=== PATIENT | female | born 1950 | race Caucasian/White ===

== ENCOUNTER 2018-12-15 22:03 | Emergency (ER) | payer MEDICARE, OTHER ==
[~2018-12-15] VITALS: Ht 154.9 cm; Wt 59.9 kg
[~2018-12-15 22:03] MED LIST: HYDR-3980 PO; IBUP-1542 PO; TRAM50TA2 PO
[2018-12-15 22:06] VITALS: Ht 154.9 cm; Wt 59.9 kg
[2018-12-15] MEDS ORDERED: morphine 4 MG/ML VIAL IV STA (22:54)
[2018-12-15] MEDS ORDERED: ONDANSETRON 4 MG INJ IV STA (22:54)
--- NOTE | 2018-12-16 00:45 | ERD ---
ER Documentation Chief Complaint Chief Complaint Left chest wall pain HPI This is 68-year-old female who is here for left chest pain. She is having 1.5 months of sharp pain located at the left lower anterior rib cage in the left pos terior rib cage. 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 She does a lot of bending stooping and repetitive motion.. She says the pain is worse when she lays flat or on the left side or moves. No shortness of breath no radiation of pain no abdominal pain no nausea no diaphoresis no weakness ROS All systems reviewed and are negative except as per history of present illness. Medications Home Meds Active Scripts Tramadol HCl (Tramadol HCl) 50 Mg Tablet, 50 MG PO Q6, #20 TAB Prov:HUSSAIN PITTMAN. DO 12/16/18 Ibuprofen* (Motrin*) 600 Mg Tab, 600 MG PO Q8, #30 TAB Prov:LEHARRISONOSAPOSTOLOS A. DO 12/16/18 Allergies Allergies: Coded Allergies: No Known Allergy (Unverified , 08/09/14) PMhx/Soc History of Surgery: No Anesthesia Reaction: No Hx Neurological Disorder: No Hx Respiratory Disorders: No Hx Cardiac Disorders: Yes (HTN) Hx Psychiatric Problems: No Hx Miscellaneous Medical Probl: No Hx Alcohol Use: No Hx Substance Use: No Hx Tobacco Use: No Smoking Status: Never smoker FmHx Family History: No coronary disease Physical Exam Vitals Vital Signs Date Temp Pulse Resp B/P (MAP) Pulse Ox O2 O2 Flow FiO2 Time Delivery Rate 12/15/18 86 16 175/86 98 Room Air 22:40 (115) 12/15/18 98.5 87 19 180/86 98 22:06 (117) Physical Exam Const: , The left anterior lower ribs are tender to palpate and reproducible pain Head: Atraumatic, normocephalic Eyes: Normal Conjunctiva, PERRLA, EOMI, normal sclera, no nystagmus ENT: Normal External Ears, Nose and Mouth, moist mucus membranes. Neck: Full range of motion. No meningismus, no lymphadenopathy. Resp: Clear to auscultation bilaterally, no wheezing, rhonchi, rales also tenderness is moderate in the posterior mid lower rib cage the pain is reproducible to palpation and movement Cardio: Regular rate and rhythm, no murmurs, S1 S2 present Abd: Soft, non tender x 4, non distended. Normal bowel sounds, no guarding or rebound, no pulsitile abdominal masses or bruits Skin: No petechiae or rashes, no ecchymosis , no maculopapular rash Back: No midline or flank tenderness Ext: No cyanosis, or edema, FROM x 4, normal inspection, neurovascularly intact x 4 Neur: Awake and alert, STR 5/5 x 4, sensation intact x 4, no focal findings, cerebellum intact Psych: Normal Mood and Affect Result Diagram: 12/15/18225112/15/182251 Results 24 hrs Laboratory Tests Test 12/15/18 22:52 White Blood Count 8.5 10^3/ul Red Blood Count 4.41 10^6/ul Hemoglobin 12.7 g/dl Hematocrit 37.3 % Mean Corpuscular Volume 84.6 fl Mean Corpuscular Hemoglobin 28.8 pg Mean Corpuscular Hemoglobin Concent 34.0 g/dl Red Cell Distribution Width 12.4 % Platelet Count 263 10^3/UL Mean Platelet Volume 10.0 fl Immature Granulocytes % 0.100 % Neutrophils % 43.0 % Lymphocytes % 47.1 % Monocytes % 8.3 % Eosinophils % 0.9 % Basophils % 0.6 % Nucleated Red Blood Cells % 0.0 /100WBC Immature Granulocytes # 0.010 10^3/ul Neutrophils # 3.7 10^3/ul Lymphocytes # 4.0 10^3/ul Monocytes # 0.7 10^3/ul Eosinophils # 0.1 10^3/ul Basophils # 0.1 10^3/ul Nucleated Red Blood Cells # 0.0 10^3/ul Sodium Level 131 mmol/L Potassium Level 4.2 mmol/L Chloride Level 92 mmol/L Carbon Dioxide Level 32 mmol/L Anion Gap 7 Blood Urea Nitrogen 7 mg/dl Creatinine 0.91 mg/dl Est Glomerular Filtrat Rate mL/min > 60 mL/min Glucose Level 87 mg/dl Calcium Level 10.1 mg/dl Troponin I < 0.012 ng/ml Current Medications Medications Dose Sig/Justyna Start Time Status Last (Trade) Ordered Route PRN Stop Time Admin Dose Reason Admin Morphine 4 mg ONCE STAT 12/15/18 DC 12/15/18 Sulfate IV 22:54 12/15/18 23:00 (morphine) 22:56 Ondansetron 4 mg ONCE STAT 12/15/18 DC 12/15/18 HCl (Zofran IV 22:54 12/15/18 22:59 Inj) 22:56 Procedures/MDM EKG: Rate/Rhythm: Normal Sinus Rhythm,NL intervals QRS, ST, QT: NORMAL GA, QRS, QT] Impression: NORMAL EKG [place] [id number] Radiology Main Line: [phone] DIAGNOSTIC IMAGING REPORT Patient: BRET WHITE : 1950 Age: 68 Sex: F MR #: [id number] DOS: 12/15/18 2254 Ordering MD: HUSSAIN PITTMAN DO Location: E/R Room/Bed: PROCEDURE: Portable chest x-ray. CLINICAL INDICATION: Chest pain. TECHNIQUE: Portable AP view of the chest. COMPARISON: 08/10/2014. FINDINGS: No pulmonary edema or conolidation is identified. The cardiac silhouette is magnified. No pleural effusion is seen. There is no pneumothorax. IMPRESSION: No evidence of acute cardiopulmonary disease. RPTAT: HTAR .David Lopez MD, MD Date Time Electronically viewed and signed by .David Lopez MD, on 12/15/2018 23:55 .R/ CC: HUSSAIN PITTMAN DO [id number] Patient's pain is grossly musculoskeletal in nature she has reproducible pain to palpation with range of motion of the trunk and she has repetitive motion that keeps aggravating it. Cardiac work-up is negative. Told her to rest and I will prescribe Motrin and Ultram Departure Diagnosis: Primary Impression: Chest wall muscle strain Encounter type: initial encounter Qualified Codes: S29.011A - Strain of muscle and tendon of front wall of thorax, initial encounter Condition: Stable Patient Instructions: Chest Wall Strain HUSSAIN PITTMAN DO Dec 16, 2018 00:45
[2018-12-16 00:52] VITALS: BP 163/75; PULSE 70; RESP 12
== END 2018-12-16 00:52 | disposition home or self-care (01) ==
LOC: E/R 22:03
DX: S29.011A Strain of muscle and tendon of front wall of thorax, initial encounter (principal); I10 Essential (primary) hypertension; X50.3XXA Overexertion from repetitive movements, initial encounter; Y92.89 Other specified places as the place of occurrence of the external cause
CPT/HCPCS: 36415; 71045; 80048; 84484; 85025; 93005; 96374; 96375; 99285; J2270; J2405

== ENCOUNTER 2018-12-24 00:52 | Emergency (ER) | payer MEDICARE ==
[~2018-12-24] VITALS: Ht 162.6 cm; Wt 61.1 kg
[~2018-12-24 00:52] MED LIST changes: +AMI10 PO
[2018-12-24 00:59] VITALS: Ht 162.6 cm; Wt 61.1 kg
[2018-12-24] MEDS ORDERED: morphine 4 MG/ML VIAL IV STA (01:52)
[2018-12-24] MEDS ORDERED: ONDANSETRON 4 MG INJ IV STA (01:52)
[2018-12-24] MEDS ORDERED: hydrALAzine 20 MG INJ IV ONE (02:00)
[2018-12-24] MEDS ORDERED: KETOROLAC 15 MG INJ IV STA (03:32)
--- NOTE | 2018-12-24 03:58 | ERD ---
ER Documentation Chief Complaint Chief Complaint ZHANG,midback pain, left leg pain X1 day,hx shingles HPI Is a 68 female with a headache mid back pain left leg pain for 1 day. Patient has history of seeing shingles recently diagnosed. At this point she has a headache and her blood pressure was elevated at home. She has a history of high blood pressure but is not currently on medications. She denies focal neurologic complaints but denies fevers or chills. Denies nausea vomiting. Denies any visual acuity changes. ROS All systems reviewed and are negative except as per history of present illness. Medications Home Meds Active Scripts Tramadol HCl (Tramadol HCl) 50 Mg Tablet, 50 MG PO Q6, #20 TAB Prov:LEKKOS,APOSTOLOS A. DO 12/16/18 Ibuprofen* (Motrin*) 600 Mg Tab, 600 MG PO Q8, #30 TAB Prov:LEKKOS,APOSTOLOS A. DO 12/16/18 Allergies Allergies: Coded Allergies: No Known Allergy (Unverified , 08/09/14) PMhx/Soc Medical and Surgical Hx: pt denies Surgical Hx History of Surgery: No Anesthesia Reaction: No Hx Neurological Disorder: No Hx Respiratory Disorders: No Hx Cardiac Disorders: Yes (HTN- controled w/o meds x 1 yr) Hx Psychiatric Problems: No Hx Miscellaneous Medical Probl: No Hx Alcohol Use: No Hx Substance Use: No Hx Tobacco Use: No Smoking Status: Never smoker Physical Exam Vitals Vital Signs Date Temp Pulse Resp B/P (MAP) Pulse Ox O2 O2 Flow FiO2 Time Delivery Rate 12/24/18 84 18 120/66 98 Room Air 03:40 (84) 12/24/18 169/78 02:18 (108) 12/24/18 97.2 74 18 202/93 100 00:59 (129) Physical Exam Const: No acute distress Head: Atraumatic Eyes: Normal Conjunctiva ENT: Normal External Ears, Nose and Mouth. Neck: Full range of motion. No meningismus. Resp: Clear to auscultation bilaterally Cardio: Regular rate and rhythm, no murmurs Abd: Soft, non tender, non distended. Normal bowel sounds Skin: No petechiae or rashes Back: No midline or flank tenderness Ext: No cyanosis, or edema Neur: Awake and alert Psych: Normal Mood and Affect Result Diagram: 12/24/1820912/24/18209 Results 24 hrs Laboratory Tests Test 12/24/18 02:10 White Blood Count 7.7 10^3/ul Red Blood Count 4.07 10^6/ul Hemoglobin 11.8 g/dl Hematocrit 34.7 % Mean Corpuscular Volume 85.3 fl Mean Corpuscular Hemoglobin 29.0 pg Mean Corpuscular Hemoglobin Concent 34.0 g/dl Red Cell Distribution Width 12.0 % Platelet Count 229 10^3/UL Mean Platelet Volume 10.4 fl Immature Granulocytes % 0.300 % Neutrophils % 50.8 % Lymphocytes % 38.9 % Monocytes % 8.9 % Eosinophils % 0.6 % Basophils % 0.5 % Nucleated Red Blood Cells % 0.0 /100WBC Immature Granulocytes # 0.020 10^3/ul Neutrophils # 3.9 10^3/ul Lymphocytes # 3.0 10^3/ul Monocytes # 0.7 10^3/ul Eosinophils # 0.1 10^3/ul Basophils # 0.0 10^3/ul Nucleated Red Blood Cells # 0.0 10^3/ul Prothrombin Time 12.6 Sec Prothrombin Time Ratio 1.0 INR International Normalized Ratio 0.93 Activated Partial Thromboplast Time 28.7 Sec Sodium Level 134 mmol/L Potassium Level 3.7 mmol/L Chloride Level 95 mmol/L Carbon Dioxide Level 30 mmol/L Anion Gap 9 Blood Urea Nitrogen 7 mg/dl Creatinine 0.79 mg/dl Est Glomerular Filtrat Rate mL/min > 60 mL/min Glucose Level 102 mg/dl Calcium Level 10.0 mg/dl Troponin I < 0.012 ng/ml Current Medications Medications Dose Sig/Justyna Start Time Status Last (Trade) Ordered Route PRN Stop Time Admin Dose Reason Admin Ondansetron 4 mg ONCE STAT 12/24/18 DC 12/24/18 HCl (Zofran IV 01:52 02:04 Inj) 12/24/18 01:53 Morphine 4 mg ONCE STAT 12/24/18 DC 12/24/18 Sulfate IV 01:52 02:04 (morphine) 12/24/18 01:53 Hydralazine 10 mg ONCE ONCE 12/24/18 DC 12/24/18 HCl IV 02:00 02:03 (Apresoline) 12/24/18 02:01 Ketorolac 15 mg ONCE STAT 12/24/18 DC 12/24/18 Tromethamine IV 03:32 03:36 (Toradol) 12/24/18 03:33 Procedures/MDM EKG: Rate/Rhythm: [Normal Sinus Rhythm] QRS, ST, T-waves: [No changes consistent w/ acute ischemia] Impression: [No evidence of ischemia or arrhythmia] Chest X-ray 1V Interpreted by me: Soft Tissue: No acute abnormalitie s Bones: No acute abnormalities Mediastinum/Cardiac Silhouette/Lungs: [No acute abnormalities] Medical decision making: Patient's neurologic symptoms have stabilized while they have been evaluated in the department and are appropriate for outpatient work up. No e/o meningitis, intracranial bleed, seizure, stroke. Patient's blood pressure was elevated (>120/80) but appears stable without evidence of hypertension emergency or urgency. The patient was counseled about the risks of hypertension and urged to pursue outpatient monitoring and therapy within a week with their primary care physician. Departure Diagnosis: Primary Impression: Headache Headache type: unspecified Headache chronicity pattern: unspecified pattern Intractability: not intractable Qualified Codes: R51 - Headache Condition: Stable WHITNEY ENGLE Dec 24, 2018 03:58
[2018-12-24 04:18] VITALS: BP 147/70; PULSE 74; RESP 18
== END 2018-12-24 04:18 | disposition home or self-care (01) ==
LOC: E/R 00:52
DX: I10 Essential (primary) hypertension (principal); M79.605 Pain in left leg
CPT/HCPCS: 36415; 70450; 71045; 80048; 84484; 85025; 85610; 85730; 93005; 96374; 96375; 99285; J0360; J1885; J2270; J2405

== ENCOUNTER 2019-01-05 20:43 | Emergency (ER) | payer MEDICARE ==
[~2019-01-05] VITALS: Ht 160 cm; Wt 59.6 kg
[2019-01-05 20:46] VITALS: Ht 160 cm; Wt 59.6 kg
[2019-01-05] MEDS ORDERED: KETOROLAC 30 MG INJ IM STA (21:09)
[2019-01-05] MEDS ORDERED: ONDANSETRON (ODT) 4 MG TAB ODT STA (21:09)
[2019-01-05] MEDS ORDERED: HYDROCODONE/APAP (5/325) TAB PO ONE (21:30)
[2019-01-05 23:14] VITALS: BP 189/79; PULSE 75; RESP 18
== END 2019-01-05 23:15 | disposition home or self-care (01) ==
LOC: FTE 20:43
DX: M54.6 Pain in thoracic spine (principal); I10 Essential (primary) hypertension
CPT/HCPCS: 71045; 96372; 99284; J1885